=== PATIENT | female | born 2000 | race Caucasian/White ===

== ENCOUNTER 2019-05-12 08:54 | Emergency (ER) | payer BC ==
[~2019-05-12] VITALS: Ht 157.5 cm; Wt 86.2 kg
--- NOTE | 2019-05-12 09:48 | NUR ---
DR Gilman at the bedside for MSE.
[2019-05-12 09:54] LABS: *BILIRUBIN,URIN NEGATIVE (NEGATIVE); *CLARITY,URINE SLIGHTLY CLOUDY (CLEAR); *COLOR,URINE YELLOW (YELLOW); *KETONES,URINE TRACE (NEGATIVE); *UROBILINOGEN,URINE 0.2 E.U./dl (NORMAL); LEUKOCYTE ESTERASE ,URINE NEGATIVE (NEGATIVE); NITRITE, URINE NEGATIVE (NEGATIVE); PH,URINE 5.5 (5.0-8.0); UGLUCOSE NEGATIVE (NEGATIVE)
[2019-05-12 09:57] LABS: *URINE HCG, QUAL NEGATIVE (NEGATIVE)
[2019-05-12 09:58] LABS: *BLOOD, URINE TRACE (NEGATIVE)
[2019-05-12] MEDS ORDERED: ACETAMINOPHEN ES 500 MG TABLET ONE (10:00)
[2019-05-12] MEDS ORDERED: ACETAMINOPHEN ES 500 MG TABLET PO ONE (10:00)
[2019-05-12 10:05] LABS: RBC,URINE 0-3 /HPF (0-3)
[2019-05-12 10:07] LABS: BACTERIA,URINE FEW /HPF (NONE SEEN); MUCUS,URINE MODERATE /LPF (0-FEW); SQUAMOUS EPITHELIAL CELL,UR MODERATE /HPF (NONE SEEN)
[2019-05-12 11:12] VITALS: BP 113/70
--- NOTE | 2019-05-12 11:12 | NUR ---
Patient discharged to home in stable conditon. Written and verbal after care instructions given. Patient verbalizes understanding of instructions.
== END 2019-05-12 11:13 | disposition home or self-care (01) ==
LOC: ER 08:54
DX: B34.9 Viral infection, unspecified (principal); R10.30 Lower abdominal pain, unspecified
CPT/HCPCS: 84703; A4663; A9150